=== PATIENT | female | born 1975 | race Caucasian/White ===

== ENCOUNTER 2018-05-18 09:15 | Outpatient (CLI) | payer BC ==
[~2018-05-18] VITALS: Ht 172.7 cm; Wt 90.7 kg
[~2018-05-18 09:15] MED LIST: CALC-823 PO
== END 2018-05-18 09:40 ==
LOC: PREOP 09:15
PROVIDERS: ATTEND Surgery
DX: Z01.818 Encounter for other preprocedural examination (principal); R19.7 Diarrhea, unspecified; R19.4 Change in bowel habit

== ENCOUNTER 2018-05-23 10:06 | Day surgery (SDC) | payer BC ==
[~2018-05-23] VITALS: Ht 172.7 cm; Wt 90.7 kg
[2018-05-23 10:05] VITALS: BP 122/77
[2018-05-23] MEDS ORDERED: NS IV 500 ML 500 ML ONE (10:34)
[2018-05-23] MEDS ORDERED: NS IV 500 ML 500 ML IV PRN (11:15)
--- NOTE | 2018-05-23 11:17 | Conscious Sedation/ASA ---
Conscious Sedation Pre-Proced Time Reviewed: 11:00 ASA Class: 2 Airway Mallampati Classification: ([place] appropriate class) I. II. III, IV Lungs Heart ASA score ASA 1: a normal healthy patient ASA 2: a patient with a mild systemic disease (mid diabetes, controlled hypertension, obesity ASA 3: a patient with a severe systemic disease that limits activity (angina , COPD, prior Myocardial infarction) ASA 4: a patient with an incapacitating disease that is a constant threat to life (CHF, renal failure) ASA 5: a moribund patient not expected to survive 24 hrs. (ruptured aneurysm) ASA 6: a declared brain patient whose organs are being harvested. For emergent operations, add the letter E after the classification Grade 2 Sedation Plan: Analgesia, Amnesia, Plan communicated to team members, Discussed options with patient/fam, Discussed risks with patient/fam Note The patient is an appropriate candidate to undergo the planned procedure, sedation, and anesthesia. The patient immediately re-assessed prior to indication. JUDY REYES MD May 23, 2018 11:17 am
--- NOTE | 2018-05-23 11:18 | Progress Note-Pre Operative ---
Pre-Operative Progress Note H&P Reviewed The H&P was reviewed, patient examined and no changes noted. Date Seen by Provider: May 23, 2018 Time Seen by Provider: 11:00 Date H&P Reviewed: May 23, 2018 Time H&P Reviewed: 11:00 Pre-Operative Diagnosis: change in bowel habits JUDY REYES MD May 23, 2018 11:18 am
[2018-05-23] MEDS ORDERED: LIDOCAINE JELLY 2% (XYLOCAINE) 5 ML TUBE ONE (11:24)
[2018-05-23] MEDS ORDERED: MIDAZOLAM 2 MG/2 ML (VERSED) VIAL ONE ×4 (11:25)
[2018-05-23] MEDS ORDERED: fentaNYL INJECTION 100 MCG/2 ML AMP ONE ×2 (11:25→11:33)
[2018-05-23] MEDS ORDERED: ACETAMINOPHEN 325 MG TABLET PO PRN (11:30)
[2018-05-23] MEDS ORDERED: HYDROcodone/APAP 5 MG/325 MG (LORTAB) TAB PO PRN (11:30)
[2018-05-23] MEDS ORDERED: morphine INJ 10 MG/ML 1ML (SYR OR VIAL) IV PRN (11:30)
[2018-05-23] MEDS ORDERED: ONDANSETRON 4 MG/2 ML (SDV) Z0FRAN IV PRN (11:30)
[2018-05-23] MEDS: MIDAZOLAM 2 MG/2 ML (VERSED) VIAL IVP PRN ×4 (11:34→11:43)
[2018-05-23] MEDS: fentaNYL INJECTION 100 MCG/2 ML AMP IVP PRN ×4 (11:35→11:44)
--- NOTE | 2018-05-23 12:03 | Progress Note-Post Operative ---
Post-Operative Progess Note Surgeon (s)/Side Seam Tender (s) Surgeon JUDY REYES MD Side Seam Tender: none Pre-Operative Diagnosis change in bowel habits Post-Operative Diagnosis chronic stage 2 ext and int hemorrhoids. Procedure & Operative Findings Date of Procedure 05/23/18 Procedure Performed/Findings Colonoscopy. Anesthesia Type CS Estimated Blood Loss Estimated blood loss (mL): minimal Specimens/Packing Specimens Removed none JUDY REYES MD May 23, 2018 12:03 pm
--- NOTE | 2018-05-23 12:04 | Discharge Inst-Surgical ---
D/C Lap Instructions-ERIC Follow Up PRN will schedule outpatient U/S gallbladder and HIDA with EF. Activity as tolerated High Fiber Diet 25g or more per day Avoid Alcohol, Caffeine, Spicy [place] and Acid foods. Drink 64 fluid oz or more of fluids per day. Symptoms to Report: Fever over 101 degree F, Nausea/Vomiting If any problems/questions: Contact your physician or go to Emergency Room JUDY REYES MD May 23, 2018 12:04 pm
[2018-05-23 12:20] VITALS: BP 125/58
[2018-05-23 12:50] VITALS: BP 117/79
[2018-05-23 13:35] VITALS: BP 117/79
--- NOTE | 2018-05-23 17:02 | OPERATIVE REPORT ---
DATE OF SERVICE: 05/23/2018 ATTENDING PRIMARY CARE PHYSICIAN: Aaron Feliciano DO PREOPERATIVE DIAGNOSIS: Change in bowel habits including worsening diarrhea. POSTOPERATIVE DIAGNOSIS: Chronic stage II external and internal hemorrhoids. Remainder of the rectum and colon were normal. PROCEDURE: Colonoscopy. SURGEON: Judy Vaughn MD ANESTHESIA: Conscious sedation. ESTIMATED BLOOD LOSS: Minimal. FINDINGS: Chronic mild stage II external and internal hemorrhoids. Remainder of the rectum and colon were normal. There were no mucosal inflammatory changes. No polyps or any neoplasms. DISPOSITION: The patient tolerated the procedure well. HISTORY: The patient is a 42-year-old female referred over to us for change in bowel habits. She has had a crampy lower abdominal pain as well as increased episodes of diarrhea. She states that she has had intermittent episodes of diarrhea and watery stools for many years during her teenage years; however, this has become more frequent and more severe in nature. She states that after 30 minutes after eating a meal, she will have watery diarrhea. She does not recall any red blood per rectum nor any dark tarry stools. She also does not report any heartburn, reflux or symptoms of peptic ulcer disease. DESCRIPTION OF PROCEDURE: The patient was brought to the endoscopy suite, laid in left lateral decubitus position. After adequate IV pain and sedating medications and conscious sedation anesthesia, a digital rectal examination was performed. Chronic stage II external and internal hemorrhoids were identified, which are not actively edematous nor inflamed and no bleeding. Normal sphincter tone was felt and there were no palpable masses. The endoscope was then intubated to the anus and the rectum was gently insufflated. The endoscope was then advanced to the valves of [place] in the rectum with no polyps or neoplasms identified as well as no mucosal inflammatory changes to indicate any proctitis. The endoscope was then advanced through the sigmoid colon where no diverticulosis was identified. We then advanced the scope to the remainder of the descending, transverse, ascending colon and the cecum. These segments were normal. There were no mucosal inflammatory changes to indicate any active colitis, inflammatory bowel disease or any neoplasms. The endoscope was then slowly withdrawn while taking a second look and suctioning of residual air with no additional findings. The patient tolerated the procedure well. We will recommend the necessary lifestyle and diet accommodation including smaller and more frequent meals, avoidance of eating at night as well as head elevation while lying supine. She also needs to avoid caffeinated beverages, spicy, greasy and acidic foods as well as incorporate a high fiber diet with at least 25 to 30 grams of fiber per day. The question also rises of a gallbladder etiology for her immediate diarrhea after bowel movements encompassing a biliary dyskinesia, so we will proceed with an outpatient ultrasound and if no lesions identified, we will proceed with a HIDA scan to look for symptomatic biliary dyskinesia. Job ID: [id number] DocumentID: [id number] Dictated Date: 05/23/2018 11:58:41 Bundle Helper Date: 05/23/2018 17:01:34 Dictated By: JUDY VAUGHN MD MTDD
== END 2018-05-23 13:35 | disposition home or self-care (01) ==
LOC: ENDO 10:06
PROVIDERS: ATTEND Surgery
DX: R19.4 Change in bowel habit (principal); R19.7 Diarrhea, unspecified; K64.1 Second degree hemorrhoids; Z87.891 Personal history of nicotine dependence
CPT/HCPCS: 84703